=== PATIENT | male | born 1975 | race Caucasian/White ===

== ENCOUNTER 2018-09-13 17:39 | Emergency (ER) | payer SELFPAY ==
[~2018-09-13] VITALS: Ht 185.4 cm; Wt 89.8 kg
[2018-09-13] MEDS ORDERED: NOVOLOG (18:03)
--- NOTE | 2018-09-13 18:12 | NUR ---
PT COMPLAINS OF NAUSEA. LETA NOTIFIED.
[2018-09-13] MEDS ORDERED: ONDANSETRON 4 MG/2 ML (SDV) Z0FRAN IVP ONE (18:15)
[2018-09-13 18:16] LABS: BASOPHILS % (AUTO) 0 % (0-10); EOSINOPHILS % (AUTO) 1 % (0-10); HEMATOCRIT 43 % (40-54); HEMOGLOBIN 15.1 G/DL (13.3-17.7); LYMPHOCYTES # (AUTO) 1.6 X 10^3 (1.0-4.0); LYMPHOCYTES % (AUTO) 28 % (12-44); MEAN CORPUSCULAR HEMOGLOBIN 29 PG (25-34); MEAN CORPUSCULAR HGB CONC 35 G/DL (32-36); MEAN CORPUSCULAR VOLUME 83 FL (80-99); MEAN PLATELET VOLUME 10.2 FL (7.4-10.4); MONOCYTES # (AUTO) 0.4 X 10^3 (0.0-1.0); MONOCYTES % (AUTO) 6 % (0-12); NEUTROPHILS # (AUTO) 3.9 X 10^3 (1.8-7.8); NEUTROPHILS % (AUTO) 65 % (42-75); PLATELET COUNT 184 10^3/uL (130-400); WHITE BLOOD COUNT 5.9 10^3/uL (4.3-11.0)
[2018-09-13 18:26] LABS: PROTHROMBIN TIME PATIENT 13.1 SEC (12.2-14.7)
--- NOTE | 2018-09-13 18:29 | Diagnostic Imaging Report ---
INDICATION: Chest pain. FINDINGS: Portable chest. Lungs are well-aerated and clear. Heart is not enlarged. There is no pulmonary edema or hilar adenopathy. No pneumothorax or pleural effusion. No bony abnormalities. IMPRESSION: Normal portable chest. Dictated by: Dictated on workstation # [id number]
[2018-09-13 18:33] LABS: ALANINE AMINOTRANSFERASE 12 U/L (0-55); ALBUMIN 4.1 GM/DL (3.2-4.5); ALKALINE PHOSPHATASE 88 U/L (40-136); BILIRUBIN,TOTAL 0.9 MG/DL (0.1-1.0); BUN/CREATININE RATIO 18; CALCIUM 9.1 MG/DL (8.5-10.1); CARBON DIOXIDE 24 MMOL/L (21-32); CHLORIDE 101 MMOL/L (98-107); CREATININE SERUM 1.23 MG/DL (0.60-1.30); GFR ESTIMATED > 60; POTASSIUM 4.5 MMOL/L (3.6-5.0); SODIUM 137 MMOL/L (135-145); TOTAL PROTEIN 6.7 GM/DL (6.4-8.2)
[2018-09-13 18:40] LABS: MYOGLOBIN SERUM 48.9 NG/ML (10.0-92.0)
[2018-09-13 18:41] LABS: GLUCOSE 451 MG/DL (70-105)
[2018-09-13] MEDS ORDERED: NS IV 1000 ML 1,000 ML IV SCH (18:45)
--- NOTE | 2018-09-13 18:50 | ED Chest Pain ---
General Chief Complaint: Chest Pain Stated Complaint: CHEST PAIN Nursing Triage Note: ARRIVED VIA AMB TO ROOM. COMPLAINTS OF CHEST PAIN OFF AND ON SINCE 0400 TODAY. STATES HIS LEFT ARM HURTS ALSO. PT TOOK X6 FULL STREGTH ASA TODAY. Nursing Sepsis Screen: No Definite Risk Source: patient Exam Limitations: no limitations History of Present Illness Date Seen by Provider: Sep 13, 2018 Time Seen by Provider: 18:14 Initial Comments 42-year-old male who presents to the emergency room with complaints of nausea and vomiting and diarrhea that started around 4 this morning. He states that shortly after his violent episodes of vomiting he started to develop left-sided chest pain. He reports taking aspirin today for pain. He denies shortness of breath, dizziness, lightheadedness. He has history of juvenile diabetes and has not taken his insulin or his blood sugars due to his not being able to eat. Timing/Duration: 1 day Severity/Quality: dull Location: substernal Radiation: shoulders (left shoulder ) Prior CP/Workup: cardiac cath (clean 2 years ago) Associated Symptoms: nausea/vomiting Allergies and Home Medications Allergies Coded Allergies: No Known Drug Allergies (Unverified , 09/13/18) Home Medications Ondansetron HCl 4 Mg Tab, 4 MG PO Q4H PRN for NAUSEA/VOMITING-1ST LINE Prescribed by: LETA PAUL on 09/13/182114 Patient Home Medication List Home Medication List Reviewed: Yes Review of Systems Review of Systems Constitutional: see HPI; No chills, No fever Cardiovascular: See HPI, Chest Pain (chest wall pain) Gastrointestinal: See HPI, Diarrhea, Nausea, Vomiting All Other Systems Reviewed Negative Unless Noted: Yes Past Dmolwph-Ekmsnn-Wxpisu Hx Past Med/Social Hx: Reviewed Nursing Past Med/Soc Hx Patient Social History Alcohol Use: Occasionally Uses Recreational Drug Use: No Smoking Status: Never a Smoker Recent Foreign Travel: No Contact w/Someone Who Travel: No Recent Infectious Disease Expo: No Recent Hopitalizations: No Past Medical History Surgeries: Yes Orthopedic Respiratory: No Cardiac: Yes (CARDIAC STENT) Genitourinary: No Gastrointestinal: No Musculoskeletal: No Endocrine: Yes Diabetes, Insulin dep HEENT: No Cancer: No Integumentary: No Family Medical History Reviewed Nursing Family Hx Physical Exam Vital Signs Vital Signs - First Documented 09/13/18 17:50 Temp 98.0 Pulse 88 Resp 16 B/P (MAP) 169/89 (115) Pulse Ox 98 O2 Delivery Room Air Capillary Refill : Less Than 3 Seconds Height, Weight, BMI Height: 6'1.00" Weight: 198lbs. oz. 89.006505hp; BMI Method:Stated General Appearance: No Apparent Distress, WD/WN HEENT: PERRL/EOMI, TMs Normal, Normal ENT Inspection, Pharynx Normal Neck: Full Range of Motion, Normal Inspection, Non Tender Respiratory: Lungs Clear, Normal Breath Sounds, No Accessory Muscle Use, No Respiratory Distress, Other (left-sided chest wall tenderness) Cardiovascular: Regular Rate, Rhythm, No Edema, No Gallop, No JVD, No Murmur, Normal Peripheral Pulses Gastrointestinal: Normal Bowel Sounds, No Organomegaly, No Pulsatile Mass, Non Tender, Soft Extremity: Normal Capillary Refill Neurologic/Psychiatric: Alert, Oriented x3, Normal Mood/Affect Skin: Normal Color, Warm/Dry Progress/Results/Core Measures Results/Orders Lab Results Laboratory Tests Test 09/13/18 18:05 09/13/18 19:12 09/13/18 20:13 09/13/18 20:15 Range/Units White Blood Count 5.9 4.3-11.0 10^3/uL Red Blood Count 5.21 4.35-5.85 10^6/uL Hemoglobin 15.1 13.3-17.7 G/DL Hematocrit 43 40-54 % Mean Corpuscular Volume 83 80-99 FL Mean Corpuscular Hemoglobin 29 25-34 PG Mean Corpuscular Hemoglobin Concent 35 32-36 G/DL Red Cell Distribution Width 13.0 10.0-14.5 % Platelet Count 184 130-400 10^3/uL Mean Platelet Volume 10.2 7.4-10.4 FL Neutrophils (%) (Auto) 65 42-75 % Lymphocytes (%) (Auto) 28 12-44 % Monocytes (%) (Auto) 6 0-12 % Eosinophils (%) (Auto) 1 0-10 % Basophils (%) (Auto) 0 0-10 % Neutrophils # (Auto) 3.9 1.8-7.8 X 10^3 Lymphocytes # (Auto) 1.6 1.0-4.0 X 10^3 Monocytes # (Auto) 0.4 0.0-1.0 X 10^3 Eosinophils # (Auto) 0.0 0.0-0.3 10^3/uL Basophils # (Auto) 0.0 0.0-0.1 10^3/uL Prothrombin Time 13.1 12.2-14.7 SEC INR Comment 1.0 0.8-1.4 Activated Partial Thromboplast Time 26 24-35 SEC Sodium Level 137 135-145 MMOL/L Potassium Level 4.5 3.6-5.0 MMOL/L Chloride Level 101 98-107 MMOL/L Carbon Dioxide Level 24 21-32 MMOL/L Anion Gap 12 5-14 MMOL/L Blood Urea Nitrogen 22 H 7-18 MG/DL Creatinine 1.23 0.60-1.30 MG/DL Estimat Glomerular Filtration Rate > 60 BUN/Creatinine Ratio 18 Glucose Level 451 *H 70-105 MG/DL Calcium Level 9.1 8.5-10.1 MG/DL Corrected Calcium 9.0 8.5-10.1 MG/DL Magnesium Level 2.0 1.8-2.4 MG/DL Total Bilirubin 0.9 0.1-1.0 MG/DL Aspartate Amino Transf (AST/SGOT) 14 5-34 U/L Alanine Aminotransferase (ALT/SGPT) 12 0-55 U/L Alkaline Phosphatase 88 40-136 U/L Myoglobin 48.9 10.0-92.0 NG/ML Troponin I < 0.028 < 0.028 <0.028 NG/ML Total Protein 6.7 6.4-8.2 GM/DL Albumin 4.1 3.2-4.5 GM/DL Urine Color YELLOW Urine Clarity CLEAR Urine pH 7 5-9 Urine Specific [place] 1.010 L 1.016-1.022 Urine Protein NEGATIVE NEGATIVE Urine Glucose (UA) 4+ H NEGATIVE Urine Ketones 3+ H NEGATIVE Urine Nitrite NEGATIVE NEGATIVE Urine Bilirubin NEGATIVE NEGATIVE Urine Urobilinogen 1 NORMAL MG/DL Urine Leukocyte Esterase NEGATIVE NEGATIVE Urine RBC (Auto) NEGATIVE NEGATIVE Urine RBC NONE /HPF Urine WBC NONE /HPF Urine Squamous Epithelial Cells NONE /HPF Urine Crystals NONE /LPF Urine Bacteria NEGATIVE /HPF Urine Casts NONE /LPF Urine Mucus NEGATIVE /LPF Urine Culture Indicated NO Glucometer 252 H 70-110 MG/DL My Orders Orders - BERNLETA CHAUDHRY Ondansetron Injection (Zofran Injectio (09/13/18 18:15) Ua Culture If Indicated (09/13/18 18:41) Ns Iv 1000 Ml (Sodium Chloride 0.9%) (09/13/18 18:45) Insulin (Regular) Human (Humulin R (Per (09/13/18 19:30) Troponin I (09/13/18 19:54) Ketorolac Injection (Toradol Injection) (09/13/18 21:00) Rx-Ondansetron Po (Rx-Zofran Po) (09/13/18 21:14) Medications Given in ED Vital Signs/I&O 09/13/18 09/13/18 17:50 21:30 Temp 98.0 98.0 Pulse 88 77 Resp 16 16 B/P (MAP) 169/89 (115) 140/86 (104) Pulse Ox 98 98 O2 Delivery Room Air Room Air Blood Pressure Mean: 115 Progress Progress Note : Time: 21:06 Progress Note I have seen and evaluated the patient. His pain has resolved after Toradol administration. His repeat troponins were negative. He is feeling overall better and his blood sugars have improved with insulin. He agrees with plan of care, plans for discharge, return precautions were given. Initial ECG Impression Date: Sep 13, 2018 Initial ECG Impression Time: 18:00 Initial ECG Rate: 87 Initial ECG Rhythm: Normal Sinus Initial ECG Intervals: Normal Initial ECG Impression: Normal Initial ECG Comparisson: No Previous ECG Available Comment Dr. Spencer reviewed EKG and agrees with above. Diagnostic Imaging Diagonstic Imaging: Xray Plain Films/CT/US/NM/MRI: chest Comments [facility], [place] NAME: ERIC MICHELLE [facility] REC#: [id number] PT STATUS: REG ER : 1975 PHYSICIAN: MANDY SPENCER MD ADMIT DATE: 09/13/18/ER Draft Date of Exam:09/13/18 CHEST 1 VIEW, AP/PA ONLY INDICATION: Chest pain. FINDINGS: Portable chest. Lungs are well-aerated and clear. Heart is not enlarged. There is no pulmonary edema or hilar adenopathy. No pneumothorax or pleural effusion. No bony abnormalities. IMPRESSION: Normal portable chest. Dictated on workstation # [id number] Dict: 03/1824 Trans: 09/13/18 182 [id number] Interpreted by: PAULINA GIL MD Electronically signed by: Reviewed: Reviewed by Me Departure Impression Primary Impression: Nausea & vomiting Additional Impressions: Diabetes mellitus Chest wall pain Disposition: HOME, SELF-CARE Condition: Stable/Unchanged (ERASED) Departure-Patient Inst. Decision time for Depature: 21:06 Referrals: CRIS WALKER MD Patient Instructions: Chest Pain (DC), Nausea and Vomiting, Adult Add. Discharge Instructions: Take medications as directed. Keep a close eye on your blood sugars and assurance insulin appropriately. You may use ibuprofen and Tylenol as directed by the bottle for pain relief. Call Dr. Walker's office to schedule an appointment for outpatient follow-up. Call first thing tomorrow morning. Return back to the emergency room for worsening symptoms or concerns as needed. Follow- up with your primary care provider within 1 week for recheck. All discharge instructions reviewed with patient and/or family. Voiced understanding. Scripts Ondansetron HCl (Zofran) 4 Mg Tab 4 MG PO Q4H PRN for NAUSEA/VOMITING-1ST LINE, #14 TAB Prov: LETA PAUL 09/13/18 LETA PAUL Sep 13, 2018 18:50
--- NOTE | 2018-09-13 18:52 | NUR ---
REPORT GIVEN TO ORTEGA.
--- NOTE | 2018-09-13 19:00 | NUR ---
ASSUMED CARE OF PT @ THIS TIME.
[2018-09-13 19:19] LABS: BILIRUBIN,URINE NEGATIVE (NEGATIVE); CLARITY,URINE CLEAR; COLOR,URINE YELLOW; GLUCOSE, URINE (UA) 4+ (NEGATIVE); KETONES,URINE 3+ (NEGATIVE); LEUKOCYTE ESTERASE ,URINE NEGATIVE (NEGATIVE); NITRITE,URINE NEGATIVE (NEGATIVE); PH,URINE 7 (5-9); PROTEIN,URINE NEGATIVE (NEGATIVE); UROBILINOGEN,URINE 1 MG/DL (NORMAL)
[2018-09-13] MEDS ORDERED: inSUlin (REGULAR) HUMAN 1 UNIT/0.01 ML (CHARGE PER UNIT) SC SCH (19:30)
[2018-09-13 19:32] LABS: BACTERIA,URINE NEGATIVE /HPF
[2018-09-13] MEDS ORDERED: KETOROLAC 30 MG/ML VIAL IVP ONE (21:00)
[2018-09-13] MEDS ORDERED: RX-ONDANSETRON 4 MG ODT (ZOFRAN) PPK #4 PO STA (21:14)
[2018-09-13] MEDS ORDERED: ONDN4T PO (21:15)
[2018-09-13 21:30] VITALS: BP 140/86
== END 2018-09-13 21:30 | disposition home or self-care (01) ==
LOC: ER 17:41
DX: R11.2 Nausea with vomiting, unspecified (principal); R07.89 Other chest pain; E11.9 Type 2 diabetes mellitus without complications; Z95.5 Presence of coronary angioplasty implant and graft
CPT/HCPCS: 36415; 71045; 80053; 81000; 82962; 83735; 83874; 84484; 85025; 85610; 85730; 93005; 93041

== ENCOUNTER 2018-11-24 10:15 | Emergency (ER) | payer OTHER ==
[~2018-11-24] VITALS: Ht 185.4 cm; Wt 86.2 kg
[~2018-11-24 10:15] MED LIST: NOVOLOG; ONDN4T PO
--- NOTE | 2018-11-24 10:26 | ED Upper Extremity ---
General Stated Complaint: L WRIST INJ Source: patient Exam Limitations: no limitations History of Present Illness Date Seen by Provider: Nov 24, 2018 Time Seen by Provider: 10:20 Initial Comments Patient presents to ER by private conveyance with chief complaint that while at work at [employer] he had a large heavy object fall back against his wrist hyperextending his left thumb and causing pain in his wrist at the base of the left thumb. He has full range of motion although it is painful to extend his thumb or abduct it. Minor swelling. He is not taking anything for the pain. It happened 15 minutes before arrival. Allergies and Home Medications Allergies Coded Allergies: No Known Drug Allergies (Unverified , 09/13/18) Patient Home Medication List Home Medication List Reviewed: Yes Review of Systems Constitutional: No chills, No fever EENTM: No ear discharge, No ear pain Respiratory: No cough, No short of breath Cardiovascular: No chest pain, No edema Gastrointestinal: No abdominal pain, No nausea Past Ncxwowy-Ikdita-Pquvnt Hx Patient Social History Recent Foreign Travel: No Contact w/Someone Who Travel: No Recent Hopitalizations: No Past Medical History Surgeries: Yes Orthopedic Respiratory: No Cardiac: Yes (CARDIAC STENT) Genitourinary: No Gastrointestinal: No Musculoskeletal: No Endocrine: Yes Diabetes, Insulin dep HEENT: No Cancer: No Integumentary: No Physical Exam Vital Signs Vital Signs - First Documented 11/24/18 10:20 Pulse 93 Resp 18 B/P (MAP) 150/81 (104) Pulse Ox 98 O2 Delivery Room Air Capillary Refill : Height, Weight, BMI Height: 6'1.00" Weight: 198lbs. oz. 89.666821gk; BMI Method:Stated General Appearance: WD/WN, mild distress HEENT: PERRL/EOMI, pharynx normal Neck: full range of motion, normal inspection Cardiovascular: normal peripheral pulses, regular rate, rhythm Respiratory: no respiratory distress, no accessory muscle use Elbow/Forearm: normal inspection, non-tender, no evidence of injury, normal ROM, Left Wrist: Yes normal ROM, Yes bone tenderness (over anatomic snuffbox and proximal phalanges of the first digit left hand as well as to palpation of the radius is 400.), Yes pain, Yes soft tissue tenderness, Yes swelling (minor) Hand: Left, limited ROM (minor limitation of thumb movement secondary to pain), soft tissue tenderness Neurologic/Psychiatric: alert, normal mood/affect, oriented x 3 Skin: normal color, warm/dry Progress/Results/Core Measures Results/Orders My Orders Orders - MANDY HOOVER Wrist, Left, 3 Views Or More (11/24/18 10:22) Ibuprofen Tablet (Motrin Tablet) (11/24/18 10:30) Medications Given in ED Current Medications Medications Dose Ordered Sig/Elo Route Start Time Stop Time Status Last Admin Dose Admin Ibuprofen 800 mg ONCE ONCE PO 11/24/18 10:30 11/24/18 10:31 DC 11/24/18 10:27 800 MG Vital Signs/I&O 11/24/18 10:20 Pulse 93 Resp 18 B/P (MAP) 150/81 (104) Pulse Ox 98 O2 Delivery Room Air Diagnostic Imaging Diagonstic Imaging: Xray Plain Films/CT/US/NM/MRI: other (left wrist) Comments No acute osseous abnormality. [facility], [place] NAME: ERIC MICHELLE [facility] REC#: [id number] PT STATUS: REG ER : 1975 PHYSICIAN: MANDY HOOVER MD ADMIT DATE: 11/24/18/ER Draft Date of Exam:11/24/18 WRIST, LEFT, 3 VIEWS OR MORE INDICATION: Left wrist injury AP, oblique and lateral views of the left wrist are obtained. FINDINGS: Note is made of atherosclerotic calcification. No acute fracture or dislocation is identified. No abnormal lytic or sclerotic focus is seen, and there is no radiopaque foreign body. IMPRESSION: No acute abnormality. Dictated on workstation # [id number] Dict: 11/24/18 1046 Trans: 11/24/18 1047 [facility] [id number] Interpreted by: GEMA SALVADOR MD Electronically signed by: Reviewed: Reviewed by Me Departure Impression Primary Impression: Left thumb sprain Qualified Codes: S63.642A - Sprain of metacarpophalangeal joint of left thumb, initial encounter Additional Impression: Left wrist sprain Qualified Codes: S63.502A - Unspecified sprain of left wrist, initial encounter Disposition: HOME, SELF-CARE Condition: Stable Departure-Patient Inst. Decision time for Depature: 10:40 Referrals: NO,LOCAL PHYSICIAN (PCP/Family) Primary Care Physician Patient Instructions: Wrist Sprain (DC) Add. Discharge Instructions: You can wear the splint for the next week as necessary for pain relief. Ice the wrist and thumb down for 20 minutes every 4 hours for the first 2 days. Tylenol 1000 mg every 8 hours in addition to ibuprofen 800 mg every 8 hours. Limit lifting with your left wrist to 20 pounds or less until 12/01/18. MANDY HOOVER J Nov 24, 2018 10:26
[2018-11-24] MEDS ORDERED: IBUPROFEN 800 MG (MOTRIN) TAB PO ONE (10:30)
--- NOTE | 2018-11-24 10:47 | Diagnostic Imaging Report ---
INDICATION: Left wrist injury AP, oblique and lateral views of the left wrist are obtained. FINDINGS: Note is made of atherosclerotic calcification. No acute fracture or dislocation is identified. No abnormal lytic or sclerotic focus is seen, and there is no radiopaque foreign body. IMPRESSION: No acute abnormality. Dictated by: Dictated on workstation # [id number]
[2018-11-24 11:16] VITALS: BP 150/81
== END 2018-11-24 11:16 | disposition home or self-care (01) ==
LOC: EDUNIT# 10:15 → ER 10:16
DX: S63.642A Sprain of metacarpophalangeal joint of left thumb, initial encounter (principal); S63.502A Unspecified sprain of left wrist, initial encounter; E11.9 Type 2 diabetes mellitus without complications; Z95.5 Presence of coronary angioplasty implant and graft; W20.8XXA Other cause of strike by thrown, projected or falling object, initial encounter; Y92.59 Other trade areas as the place of occurrence of the external cause; Y99.0 Civilian activity done for income or pay
CPT/HCPCS: 73110